=== PATIENT | female | born 1965 | race Caucasian/White ===

== ENCOUNTER 2018-04-20 13:07 | Inpatient (IN) | payer MEDICAID ==
[~2018-04-20] VITALS: Ht 160 cm; Wt 121.3 kg
[~2018-04-20 13:07] MED LIST: CEFT1FRO2 IV; GABA300C10 PO; METF500T PO; SODI650T PO
[2018-04-20 13:48] LABS: MEAN CORPUSCULAR HEMOGLOBIN 28.3 pg (27.0-34.8); MEAN CORPUSCULAR HGB CONC 33.5 g/dL (32.4-35.8); MEAN CORPUSCULAR VOLUME 84.6 fL (80-100); MEAN PLATELET VOLUME 7.4 fL (7.4-10.4); PLATELET COUNT 404 x10^3/uL (130-400); RED BLOOD COUNT 3.96 x10^6/uL (3.82-5.3); RED CELL DISTRIBUTION WIDTH 15.7 % (9.6-15.2)
[2018-04-20 14:17] LABS: ALBUMIN 2.8 g/dL (3.4-5.0); ANION GAP 9 mmol/L (5-15); CALCIUM 9.4 mg/dL (8.5-10.1); CHLORIDE 113 mmol/L (98-107); CREATININE 2.12 mg/dL (0.55-1.02)
[2018-04-20 14:21] LABS: TROPONIN I < 0.015 ng/mL (0.000-0.045)
[2018-04-20 14:36] LABS: BASOPHILS # (AUTO) 0.04 x10^3/uL (0-0.1); BASOPHILS % (AUTO) 0 % (0-1); EOSINOPHILS # (AUTO) 0.06 x10^3/uL (0-0.4); EOSINOPHILS % (AUTO) 0 % (1-7); LYMPHOCYTES # (AUTO) 1.69 x10^3/uL (1-3.4); LYMPHOCYTES % (AUTO) 11 % (22-44); MD SCAN; MONOCYTES # (AUTO) 1.53 x10^3/uL (0.2-0.8); MONOCYTES % (AUTO) 10 % (2-9); NEUTROPHILS # (AUTO) 11.69 x10^3/uL (1.8-6.8); NEUTROPHILS % (AUTO) 78 % (42-75)
--- NOTE | 2018-04-20 16:47 | NUR ---
TO ROOM FROM LOBBY. NAD.
--- NOTE | 2018-04-20 17:23 | NUR ---
PT PRESENTS TO ED WITH C/O GENERALIZED WEAKNESS/DIZZINESS X 3-4 DAYS, NEURO INTACT. PT A&OX4, NO DRIFT, ALL EXTREMITY STRENGTH 5/5. PT PLACED ON ALL MONITORS. PT DENIES PAIN. ALL RESULTS BACK, CHART UP FOR RECHECK. AWAITING MD AND DISPO.
--- NOTE | 2018-04-20 17:38 | NUR ---
pt instructed to provide clean catch ua. Addendum: 04/20/18 at 1815 by TRAMAINE pt instructed to provide clean catch ua. lab at bedside for blood cx draw.
[2018-04-20] MEDS ORDERED: SODIUM CHLORIDE 0.9% 1,000ML IVBOLUS ONE (18:00)
--- NOTE | 2018-04-20 18:05 | NUR ---
pt up to bathroom to void, back in bed. urine sample collected and sent to lab.
--- NOTE | 2018-04-20 18:17 | NUR ---
PIV started, IVF infusing. pt a&o, resps even and unlabored. nsr on gambling monitor with no ectopy. awaiting ua results and dispo.
[2018-04-20 18:36] LABS: MICROSCOPIC AUTO
[2018-04-20 18:38] LABS: CULTURE INDICATED? YES
--- NOTE | 2018-04-20 18:58 | NUR ---
[facility] TUSHAR NOTIFIED OF UTI DETECTED ON UA, PT MEETING CRITERIA FOR SEPSIS, AWAITING ORDER FOR IV ABX.
[2018-04-20] MEDS ORDERED: SODIUM CHLORIDE FLUSH 10ML SYR IVF ONE (19:00)
[2018-04-20] MEDS ORDERED: CEFTRIAXONE PMX 1GM/50ML 50 ML ONE (19:09)
[2018-04-20] MEDS ORDERED: ATOR20TA37 PO (19:21)
[2018-04-20] MEDS ORDERED: INSU100I34 SQ-INSULIN (19:21)
[2018-04-20] MEDS ORDERED: claritin PO (19:21)
[2018-04-20] MEDS ORDERED: ASPI-515 PO (19:21)
--- NOTE | 2018-04-20 19:21 | NUR ---
report to break [facility].
[2018-04-20] MEDS ORDERED: CEFTRIAXONE PMX 2GM/50ML 50 ML IV ONE (19:30)
[2018-04-20] MEDS ORDERED: DEXTROSE 4 GM TAB.CHEW PO PRN (19:30)
[2018-04-20] MEDS ORDERED: CEFTRIAXONE PMX 1GM/50ML 50 ML IV ONE ×2 (19:30→22:00)
[2018-04-20] MEDS ORDERED: ONDANSETRON 2MG/ML, 2ML IV PRN (19:30)
[2018-04-20] MEDS ORDERED: SODIUM CHLORIDE 0.9% 1,000 ML IV SCH (19:30)
[2018-04-20] MEDS ORDERED: GLUCAGON 1 MG IM PRN (19:30)
[2018-04-20] MEDS ORDERED: DEXTROSE 50%, 50ML SYRINGE IVPush PRN (19:30)
[2018-04-20] MEDS ORDERED: POLYETHYLENE GLYCOL 17 GM PACKET PO PRN (19:30)
[2018-04-20] MEDS ORDERED: PHARMACY MAY ADJ FOR RENAL FX MC SCH (19:30)
--- NOTE | 2018-04-20 19:55 | NUR ---
report taken from break [facility]. pt resting on gurney, resps even and unlabored. vss. pt awaiting medical room assignment and transport.
--- NOTE | 2018-04-20 20:14 | NUR ---
report given to receiving [facility] pt awaiting transport to medical floor.
[2018-04-20 20:23] LABS: HEMOGLOBIN A1C 7.8 % (4.2-6.3)
[2018-04-20 20:32] VITALS: BP 144/77
[2018-04-20 20:33] VITALS: BP 144/77
[2018-04-20] MEDS: INSULIN LISPRO 100 UNITS/ML, PEN SQ-INSULIN SCH (21:00)
[2018-04-20] MEDS: HEPARIN 5,000 UNITS/ML, 1ML SQ SCH (22:35)
[2018-04-20] MEDS: SODIUM CHLORIDE FLUSH 10ML SYR IVF SCH (22:35)
[2018-04-20] MEDS: INSULIN GLARGINE 100 UNITS/ML, PEN SQ-INSULIN SCH (22:36)
[2018-04-21 00:59] VITALS: BP 125/70
[2018-04-21 05:26] LABS: BASOPHILS # (AUTO) 0.02 x10^3/uL (0-0.1); BASOPHILS % (AUTO) 0 % (0-1); EOSINOPHILS # (AUTO) 0.09 x10^3/uL (0-0.4); EOSINOPHILS % (AUTO) 1 % (1-7); LYMPHOCYTES # (AUTO) 0.83 x10^3/uL (1-3.4); LYMPHOCYTES % (AUTO) 7 % (22-44); MD NO; MEAN CORPUSCULAR HEMOGLOBIN 29.1 pg (27.0-34.8); MEAN CORPUSCULAR HGB CONC 34.5 g/dL (32.4-35.8); MEAN CORPUSCULAR VOLUME 84.5 fL (80-100); MEAN PLATELET VOLUME 7.5 fL (7.4-10.4); MONOCYTES # (AUTO) 0.81 x10^3/uL (0.2-0.8); MONOCYTES % (AUTO) 6 % (2-9); NEUTROPHILS # (AUTO) 11.07 x10^3/uL (1.8-6.8); NEUTROPHILS % (AUTO) 86 % (42-75); PLATELET COUNT 363 x10^3/uL (130-400); RED BLOOD COUNT 3.78 x10^6/uL (3.82-5.3); RED CELL DISTRIBUTION WIDTH 15.4 % (9.6-15.2)
[2018-04-21 05:34] LABS: ANION GAP 10 mmol/L (5-15); CALCIUM 8.9 mg/dL (8.5-10.1); CHLORIDE 115 mmol/L (98-107)
[2018-04-21 05:35] LABS: CREATININE 1.69 mg/dL (0.55-1.02)
[2018-04-21] MEDS: ASPIRIN 81 MG TABLET EC PO SCH (05:57)
[2018-04-21 06:47] VITALS: BP 102/56
[2018-04-21] MEDS: ACETAMINOPHEN 325 MG TABLET PO PRN (09:06)
[2018-04-21] MEDS: HEPARIN 5,000 UNITS/ML, 1ML SQ SCH ×2 (09:06→16:37)
[2018-04-21] MEDS: SODIUM CHLORIDE FLUSH 10ML SYR IVF SCH ×2 (09:07→20:39)
[2018-04-21] MEDS: INSULIN LISPRO 100 UNITS/ML, PEN SQ-INSULIN SCH ×4 (10:21→20:38)
[2018-04-21] MEDS ORDERED: PHARMACY MAY ADJ FOR RENAL FX MC PRN (12:00)
[2018-04-21] MEDS: SODIUM CHLORIDE 0.9% 1,000 ML IV SCH (12:56)
[2018-04-21 14:00] VITALS: BP 117/60
[2018-04-21 18:33] VITALS: BP 137/71
[2018-04-21] MEDS: ATORVASTATIN 20 MG TABLET PO SCH (20:37)
[2018-04-21] MEDS: GABAPENTIN 300 MG CAPSULE PO SCH (20:38)
[2018-04-21] MEDS: INSULIN GLARGINE 100 UNITS/ML, PEN SQ-INSULIN SCH (20:38)
[2018-04-21] MEDS: CEFTRIAXONE PMX 2GM/50ML 50 ML IV SCH (22:06)
[2018-04-22 00:54] VITALS: BP 137/71
[2018-04-22] MEDS: SODIUM CHLORIDE 0.9% 1,000 ML IV SCH ×2 (03:19→16:41)
[2018-04-22 05:43] LABS: BASOPHILS # (AUTO) 0.04 x10^3/uL (0-0.1); BASOPHILS % (AUTO) 0 % (0-1); EOSINOPHILS # (AUTO) 0.26 x10^3/uL (0-0.4); EOSINOPHILS % (AUTO) 3 % (1-7); LYMPHOCYTES # (AUTO) 1.05 x10^3/uL (1-3.4); LYMPHOCYTES % (AUTO) 11 % (22-44); MD NO; MEAN CORPUSCULAR VOLUME 85.3 fL (80-100); MEAN PLATELET VOLUME 7.4 fL (7.4-10.4); MONOCYTES % (AUTO) 11 % (2-9); NEUTROPHILS # (AUTO) 6.81 x10^3/uL (1.8-6.8); NEUTROPHILS % (AUTO) 74 % (42-75); PLATELET COUNT 327 x10^3/uL (130-400); RED BLOOD COUNT 3.66 x10^6/uL (3.82-5.3); RED CELL DISTRIBUTION WIDTH 14.9 % (9.6-15.2)
[2018-04-22] MEDS: ASPIRIN 81 MG TABLET EC PO SCH (05:48)
[2018-04-22] MEDS: HEPARIN 5,000 UNITS/ML, 1ML SQ SCH ×3 (05:49→16:00)
[2018-04-22 05:50] LABS: ALBUMIN 2.3 g/dL (3.4-5.0); ANION GAP 10 mmol/L (5-15); CALCIUM 8.7 mg/dL (8.5-10.1); CHLORIDE 115 mmol/L (98-107); CREATININE 1.44 mg/dL (0.55-1.02)
[2018-04-22 07:05] VITALS: BP 105/64
[2018-04-22] MEDS: SODIUM CHLORIDE FLUSH 10ML SYR IVF SCH ×2 (07:08→21:00)
[2018-04-22] MEDS: ACETAMINOPHEN 325 MG TABLET PO PRN (08:08)
[2018-04-22] MEDS: INSULIN LISPRO 100 UNITS/ML, PEN SQ-INSULIN SCH ×4 (08:09→21:00)
[2018-04-22 13:47] VITALS: BP 95/68
[2018-04-22] MEDS ORDERED: POTASSIUM CHLORIDE 20 MEQ TAB.ER.PRT PO ONE (15:00)
[2018-04-22 19:05] VITALS: BP 128/71
[2018-04-22] MEDS: GABAPENTIN 300 MG CAPSULE PO SCH (20:17)
[2018-04-22] MEDS: ATORVASTATIN 20 MG TABLET PO SCH (20:17)
[2018-04-22] MEDS: INSULIN GLARGINE 100 UNITS/ML, PEN SQ-INSULIN SCH (20:59)
[2018-04-22] MEDS: CEFTRIAXONE PMX 2GM/50ML 50 ML IV SCH (22:37)
[2018-04-23 00:49] VITALS: BP 158/78
[2018-04-23 05:20] LABS: ALBUMIN 2.4 g/dL (3.4-5.0); ANION GAP 8 mmol/L (5-15); CALCIUM 8.8 mg/dL (8.5-10.1); CHLORIDE 116 mmol/L (98-107); CREATININE 1.42 mg/dL (0.55-1.02)
[2018-04-23] MEDS: ASPIRIN 81 MG TABLET EC PO SCH (06:20)
[2018-04-23] MEDS: SODIUM CHLORIDE 0.9% 1,000 ML IV SCH (06:20)
[2018-04-23 06:41] VITALS: BP 144/81
[2018-04-23] MEDS: INSULIN LISPRO 100 UNITS/ML, PEN SQ-INSULIN SCH ×4 (08:32→20:00)
[2018-04-23] MEDS: HEPARIN 5,000 UNITS/ML, 1ML SQ SCH ×4 (08:32→23:11)
[2018-04-23] MEDS: SODIUM CHLORIDE FLUSH 10ML SYR IVF SCH ×2 (08:32→20:01)
[2018-04-23 12:13] VITALS: BP 155/79
[2018-04-23 16:50] LABS: ACETONE, SERUM Negative (Negative)
[2018-04-23] MEDS: GABAPENTIN 300 MG CAPSULE PO SCH (20:00)
[2018-04-23] MEDS: INSULIN GLARGINE 100 UNITS/ML, PEN SQ-INSULIN SCH (20:00)
[2018-04-23] MEDS: ACETAMINOPHEN 325 MG TABLET PO PRN (20:01)
[2018-04-23] MEDS: SODIUM BICARBONATE 650 MG TABLET PO SCH (20:01)
[2018-04-23] MEDS: ATORVASTATIN 20 MG TABLET PO SCH (20:01)
[2018-04-23 20:31] VITALS: BP 164/85
[2018-04-23] MEDS: CEFTRIAXONE PMX 2GM/50ML 50 ML IV SCH (23:11)
[2018-04-24 01:54] VITALS: BP 135/82
[2018-04-24 06:14] LABS: ALBUMIN 2.5 g/dL (3.4-5.0); ANION GAP 9 mmol/L (5-15); BASOPHILS # (AUTO) 0.04 x10^3/uL (0-0.1); BASOPHILS % (AUTO) 0 % (0-1); CALCIUM 8.8 mg/dL (8.5-10.1); CHLORIDE 109 mmol/L (98-107); EOSINOPHILS # (AUTO) 0.26 x10^3/uL (0-0.4); EOSINOPHILS % (AUTO) 2 % (1-7); LYMPHOCYTES # (AUTO) 0.85 x10^3/uL (1-3.4); LYMPHOCYTES % (AUTO) 6 % (22-44); MD NO; MEAN CORPUSCULAR HEMOGLOBIN 28.6 pg (27.0-34.8); MEAN CORPUSCULAR HGB CONC 33.9 g/dL (32.4-35.8); MEAN CORPUSCULAR VOLUME 84.5 fL (80-100); MEAN PLATELET VOLUME 7.3 fL (7.4-10.4); MONOCYTES % (AUTO) 5 % (2-9); NEUTROPHILS # (AUTO) 12.23 x10^3/uL (1.8-6.8); NEUTROPHILS % (AUTO) 87 % (42-75); PLATELET COUNT 402 x10^3/uL (130-400); RED BLOOD COUNT 3.66 x10^6/uL (3.82-5.3); RED CELL DISTRIBUTION WIDTH 15.2 % (9.6-15.2)
[2018-04-24 06:19] LABS: ALANINE AMINOTRANSFERASE 34 U/L (12-78); ALKALINE PHOSPHATASE 266 U/L (45-117); BILIRUBIN,TOTAL 0.3 mg/dL (0.2-1.0); CREATININE 1.44 mg/dL (0.55-1.02); TOTAL PROTEIN 8.3 g/dL (6.4-8.2)
[2018-04-24 07:26] VITALS: BP 149/75
[2018-04-24] MEDS ORDERED: POTASSIUM CHLORIDE 20 MEQ TAB.ER.PRT PO ONE (07:30)
[2018-04-24] MEDS: SODIUM CHLORIDE FLUSH 10ML SYR IVF SCH ×2 (08:25→21:00)
[2018-04-24] MEDS: SODIUM BICARBONATE 650 MG TABLET PO SCH ×2 (08:25→19:45)
[2018-04-24] MEDS: ASPIRIN 81 MG TABLET EC PO SCH (08:25)
[2018-04-24] MEDS: INSULIN LISPRO 100 UNITS/ML, PEN SQ-INSULIN SCH ×4 (08:25→19:47)
[2018-04-24] MEDS: HEPARIN 5,000 UNITS/ML, 1ML SQ SCH ×3 (08:25→22:33)
[2018-04-24] MEDS: SODIUM CHLORIDE 0.9% 1,000 ML IV SCH ×2 (11:44→21:05)
[2018-04-24 14:04] VITALS: BP 135/76
[2018-04-24] MEDS: ATORVASTATIN 20 MG TABLET PO SCH (19:45)
[2018-04-24] MEDS: GABAPENTIN 300 MG CAPSULE PO SCH (19:45)
[2018-04-24] MEDS: INSULIN GLARGINE 100 UNITS/ML, PEN SQ-INSULIN SCH (19:46)
[2018-04-24 20:02] VITALS: BP 148/82
[2018-04-24] MEDS: CEFTRIAXONE PMX 2GM/50ML 50 ML IV SCH (23:27)
[2018-04-25 01:17] VITALS: BP 138/75
[2018-04-25 05:05] LABS: BASOPHILS # (AUTO) 0.05 x10^3/uL (0-0.1); BASOPHILS % (AUTO) 0 % (0-1); EOSINOPHILS # (AUTO) 0.29 x10^3/uL (0-0.4); EOSINOPHILS % (AUTO) 2 % (1-7); LYMPHOCYTES # (AUTO) 1.08 x10^3/uL (1-3.4); LYMPHOCYTES % (AUTO) 7 % (22-44); MD NO; MEAN CORPUSCULAR HGB CONC 34.3 g/dL (32.4-35.8); MEAN CORPUSCULAR VOLUME 84.6 fL (80-100); MEAN PLATELET VOLUME 7.3 fL (7.4-10.4); MONOCYTES # (AUTO) 0.87 x10^3/uL (0.2-0.8); MONOCYTES % (AUTO) 6 % (2-9); NEUTROPHILS # (AUTO) 12.83 x10^3/uL (1.8-6.8); NEUTROPHILS % (AUTO) 85 % (42-75); PLATELET COUNT 387 x10^3/uL (130-400); RED BLOOD COUNT 3.85 x10^6/uL (3.82-5.3); RED CELL DISTRIBUTION WIDTH 14.6 % (9.6-15.2)
[2018-04-25 05:13] LABS: ALBUMIN 2.4 g/dL (3.4-5.0); ANION GAP 9 mmol/L (5-15); CALCIUM 8.7 mg/dL (8.5-10.1); CHLORIDE 109 mmol/L (98-107)
[2018-04-25 05:15] LABS: CREATININE 1.54 mg/dL (0.55-1.02)
[2018-04-25 06:44] VITALS: BP 151/75
[2018-04-25] MEDS: INSULIN LISPRO 100 UNITS/ML, PEN SQ-INSULIN SCH ×4 (07:00→19:59)
[2018-04-25 07:59] LABS: HCT (SEDRATE) 32.6 % (34.6-47.8)
[2018-04-25] MEDS: HEPARIN 5,000 UNITS/ML, 1ML SQ SCH ×3 (08:00→23:09)
[2018-04-25] MEDS: SODIUM CHLORIDE 0.9% 1,000 ML IV SCH ×3 (08:00→23:19)
[2018-04-25] MEDS: SODIUM CHLORIDE FLUSH 10ML SYR IVF SCH ×2 (09:00→19:47)
[2018-04-25 09:18] LABS: MICROSCOPIC AUTO
[2018-04-25 09:21] LABS: CULTURE INDICATED? YES
[2018-04-25 09:54] LABS: RAPID INFLUENZA A Negative (Negative); RAPID INFLUENZA B Negative (Negative)
[2018-04-25] MEDS: ASPIRIN 81 MG TABLET EC PO SCH (10:12)
[2018-04-25] MEDS: SODIUM BICARBONATE 650 MG TABLET PO SCH ×2 (10:12→19:47)
[2018-04-25 14:10] VITALS: BP 135/74
[2018-04-25] MEDS ORDERED: LEVOFLOXACIN 750 MG TABLET PO SCH (14:30)
[2018-04-25 19:34] VITALS: BP 142/71
[2018-04-25] MEDS: ATORVASTATIN 20 MG TABLET PO SCH (19:47)
[2018-04-25] MEDS: GABAPENTIN 300 MG CAPSULE PO SCH (19:47)
[2018-04-25] MEDS: INSULIN GLARGINE 100 UNITS/ML, PEN SQ-INSULIN SCH (19:58)
[2018-04-26 00:48] VITALS: BP 122/77
[2018-04-26] MEDS: ASPIRIN 81 MG TABLET EC PO SCH (05:37)
[2018-04-26] MEDS: INSULIN LISPRO 100 UNITS/ML, PEN SQ-INSULIN SCH ×4 (07:00→19:30)
[2018-04-26 07:34] VITALS: BP 127/70
[2018-04-26] MEDS: SODIUM BICARBONATE 650 MG TABLET PO SCH ×2 (07:59→19:16)
[2018-04-26] MEDS: SODIUM CHLORIDE FLUSH 10ML SYR IVF SCH ×2 (07:59→19:17)
[2018-04-26] MEDS: HEPARIN 5,000 UNITS/ML, 1ML SQ SCH ×3 (07:59→23:40)
[2018-04-26] MEDS: SODIUM CHLORIDE 0.9% 1,000 ML IV SCH ×2 (08:00→19:17)
[2018-04-26 09:32] LABS: ANION GAP 7 mmol/L (5-15); CALCIUM 8.6 mg/dL (8.5-10.1); CHLORIDE 107 mmol/L (98-107); CREATININE 1.48 mg/dL (0.55-1.02)
[2018-04-26 09:37] LABS: BASOPHILS # (AUTO) 0.02 x10^3/uL (0-0.1); BASOPHILS % (AUTO) 0 % (0-1); EOSINOPHILS % (AUTO) 4 % (1-7); LYMPHOCYTES # (AUTO) 1.06 x10^3/uL (1-3.4); LYMPHOCYTES % (AUTO) 8 % (22-44); MD NO; MEAN CORPUSCULAR HEMOGLOBIN 27.9 pg (27.0-34.8); MEAN CORPUSCULAR HGB CONC 32.9 g/dL (32.4-35.8); MEAN CORPUSCULAR VOLUME 84.9 fL (80-100); MEAN PLATELET VOLUME 7.6 fL (7.4-10.4); MONOCYTES # (AUTO) 1.03 x10^3/uL (0.2-0.8); MONOCYTES % (AUTO) 8 % (2-9); NEUTROPHILS % (AUTO) 81 % (42-75); PLATELET COUNT 394 x10^3/uL (130-400); RED BLOOD COUNT 3.65 x10^6/uL (3.82-5.3); RED CELL DISTRIBUTION WIDTH 15.5 % (9.6-15.2)
[2018-04-26] MEDS: SULFAMETH./TRIMETHOPRIM DS 800MG/160MG TABLET PO SCH ×2 (11:25→19:16)
[2018-04-26 12:49] VITALS: BP 105/64
[2018-04-26] MEDS ORDERED: LEVOFLOXACIN 750 MG TABLET PO SCH (14:30)
[2018-04-26] MEDS: ATORVASTATIN 20 MG TABLET PO SCH (19:17)
[2018-04-26] MEDS: GABAPENTIN 300 MG CAPSULE PO SCH (19:17)
[2018-04-26 19:22] VITALS: BP 136/84
[2018-04-26] MEDS: INSULIN GLARGINE 100 UNITS/ML, PEN SQ-INSULIN SCH (19:30)
[2018-04-27 01:52] VITALS: BP 127/77
[2018-04-27] MEDS: ASPIRIN 81 MG TABLET EC PO SCH (04:59)
[2018-04-27] MEDS: SODIUM CHLORIDE 0.9% 1,000 ML IV SCH (04:59)
[2018-04-27 05:29] LABS: BASOPHILS # (AUTO) 0.04 x10^3/uL (0-0.1); BASOPHILS % (AUTO) 0 % (0-1); EOSINOPHILS # (AUTO) 0.37 x10^3/uL (0-0.4); EOSINOPHILS % (AUTO) 4 % (1-7); LYMPHOCYTES # (AUTO) 1.55 x10^3/uL (1-3.4); LYMPHOCYTES % (AUTO) 16 % (22-44); MD NO; MEAN CORPUSCULAR HEMOGLOBIN 27.8 pg (27.0-34.8); MEAN CORPUSCULAR HGB CONC 32.8 g/dL (32.4-35.8); MEAN CORPUSCULAR VOLUME 84.8 fL (80-100); MEAN PLATELET VOLUME 7.5 fL (7.4-10.4); MONOCYTES # (AUTO) 0.92 x10^3/uL (0.2-0.8); MONOCYTES % (AUTO) 10 % (2-9); NEUTROPHILS % (AUTO) 70 % (42-75); PLATELET COUNT 354 x10^3/uL (130-400); RED BLOOD COUNT 3.35 x10^6/uL (3.82-5.3); RED CELL DISTRIBUTION WIDTH 15.2 % (9.6-15.2)
[2018-04-27] MEDS: INSULIN LISPRO 100 UNITS/ML, PEN SQ-INSULIN SCH ×2 (07:00→11:00)
[2018-04-27 07:49] VITALS: BP 135/72
[2018-04-27] MEDS: SODIUM BICARBONATE 650 MG TABLET PO SCH (07:51)
[2018-04-27] MEDS: SODIUM CHLORIDE FLUSH 10ML SYR IVF SCH (07:51)
[2018-04-27] MEDS: HEPARIN 5,000 UNITS/ML, 1ML SQ SCH ×2 (07:51→07:53)
[2018-04-27] MEDS: SULFAMETH./TRIMETHOPRIM DS 800MG/160MG TABLET PO SCH (07:51)
[2018-04-27] MEDS ORDERED: SODI650T PO (09:57)
[2018-04-27] MEDS ORDERED: SULF-169 PO (09:57)
== END 2018-04-27 12:00 | disposition home or self-care (01) | DRG 690 ==
LOC: ED 16:58 → EDIP 19:29 → 3NE 20:22 → DCLOUNGE 04-27 11:45
PROVIDERS: ADMIT Family Medicine; ATTEND Family Medicine
DX: N12 Tubulo-interstitial nephritis, not specified as acute or chronic (principal); E46 Unspecified protein-calorie malnutrition; T88.6XXA Anaphylactic reaction due to adverse effect of correct drug or medicament properly administered, initial encounter; Z68.42 Body mass index [BMI] 45.0-49.9, adult; N17.9 Acute kidney failure, unspecified; E11.22 Type 2 diabetes mellitus with diabetic chronic kidney disease; E11.42 Type 2 diabetes mellitus with diabetic polyneuropathy; E11.65 Type 2 diabetes mellitus with hyperglycemia; B96.20 Unspecified Escherichia coli [E. coli] as the cause of diseases classified elsewhere; E66.01 Morbid (severe) obesity due to excess calories; E78.5 Hyperlipidemia, unspecified; E86.0 Dehydration; N18.3 Chronic kidney disease, stage 3 (moderate); T36.0X5A Adverse effect of penicillins, initial encounter; Z16.23 Resistance to quinolones and fluoroquinolones; Z79.4 Long term (current) use of insulin; Z82.49 Family history of ischemic heart disease and other diseases of the circulatory system; Z83.3 Family history of diabetes mellitus; Z87.891 Personal history of nicotine dependence; Z88.0 Allergy status to penicillin
CPT/HCPCS: 36415; 71045; 76700; 80048; 80053; 81001; 82010; 82040; 82962; 82977; 83036; 83605; 84484; 85025; 85651; 86140; 87040; 87077; 87086; 87186; 87400; 93005; 99285; G0378; J0696; J1644; J1815; J7030

== ENCOUNTER 2020-06-21 22:26 | Emergency (ER) | payer MEDICAID ==
[~2020-06-21] VITALS: Ht 160 cm; Wt 136.0 kg
[~2020-06-21 22:26] MED LIST changes: +ASPI-963 PO; +ATOR20TA37 PO; +INSU100I34 SQ-INSULIN; +SULF-169 PO; +claritin PO
[2020-06-21 22:31] VITALS: BP 158/82
[2020-06-21 23:10] LABS: MICROSCOPIC INDICATED
[2020-06-21 23:24] LABS: BASOPHILS % (AUTO) 1 % (0-1); EOSINOPHILS % (AUTO) 6 % (1-7); LYMPHOCYTES % (AUTO) 21 % (22-44); MEAN CORPUSCULAR HEMOGLOBIN 28.5 pg (27.0-34.8); MEAN CORPUSCULAR HGB CONC 33.1 g/dL (32.4-35.8); MEAN PLATELET VOLUME 7.8 fL (7.4-10.4); MONOCYTES % (AUTO) 8 % (2-9); NEUTROPHILS % (AUTO) 64 % (42-75); PLATELET COUNT 329 x10^3/uL (130-400); RED CELL DISTRIBUTION WIDTH 15.6 % (9.6-15.2)
[2020-06-21 23:25] LABS: MD NO
[2020-06-21 23:34] LABS: ALANINE AMINOTRANSFERASE 27 U/L (12-78); ALBUMIN 3.4 g/dL (3.4-5.0); ANION GAP 6 mmol/L (5-15); CALCIUM 9.3 mg/dL (8.5-10.1); CHLORIDE 113 mmol/L (98-107); CREATININE 1.66 mg/dL (0.55-1.02)
[2020-06-21 23:36] LABS: ALKALINE PHOSPHATASE 191 U/L (45-117); BILIRUBIN,TOTAL 0.2 mg/dL (0.2-1.0); TOTAL PROTEIN 8.2 g/dL (6.4-8.2)
== END 2020-06-22 01:50 | disposition home or self-care (01) ==
LOC: ED 06-22
DX: N30.01 Acute cystitis with hematuria (principal); I12.9 Hypertensive chronic kidney disease with stage 1 through stage 4 chronic kidney disease, or unspecified chronic kidney disease; N18.2 Chronic kidney disease, stage 2 (mild); E11.65 Type 2 diabetes mellitus with hyperglycemia
CPT/HCPCS: 36415; 74176; 80053; 81001; 85025; 87077; 87086; 87186; 99284